=== PATIENT | male | born 1955 | race African-American/Black ===

== ENCOUNTER 2016-12-07 09:52 | Inpatient (IN) ==
[2016-12-07] MEDS ORDERED: PANTOPRAZOLE 40 MG VIAL IV STA (10:25)
[2016-12-07] MEDS ORDERED: ALUM/MAG/SIMETH/LIDO VISC 1:1 30 ML BOTTLE PO STA (10:25)
[2016-12-07] MEDS ORDERED: SODIUM CHLORIDE 0.9% 500 ML IV STA (10:25)
[2016-12-07] MEDS ORDERED: ONDANSETRON 4 MG/2 ML VIAL IV STA (10:25)
--- NOTE | 2016-12-07 10:33 | EKG Report ---
Stationary ECG Study [facility] ER Test Date: 12/07/2016 9:57:39 AM Pat Name: TOM RODRÍGUEZ Department: Room: Gender: M Medical Technologist Prn: RAUL : 1955 Requested by: Tom Pillai Order Number: [id number] Reading MD: DAVIDA PAREDES Intervals [place] Rate: 122 P: 47 IL: 122 QRS: -20 QRSD: 88 T: 29 QT: 323 QTc: 395 Interpretive Statements SINUS TACHYCARDIA POOR R-WAVE PROGRESSION Electronically Signed On 12-07-16 14:56:45 PROFESSIONAL MODEL by DAVIDA PAREDES [email or web address]
[2016-12-07] MEDS ORDERED: PANTOPRAZOLE 40 MG VIAL IV ONE (10:35)
[2016-12-07] MEDS ORDERED: ONDANSETRON 4 MG/2 ML VIAL ONE (10:35)
[2016-12-07] MEDS ORDERED: ALUM/MAG/SIMETH/LIDO VISC 1:1 30 ML BOTTLE PO ONE (10:36)
--- NOTE | 2016-12-07 10:50 | Emergency Department Note ---
Daya Noble Brittany, am scribing for, and in the presence of, Alexis Cordova MD 10:34. Art Noble Charles R, MD, personally performed the services described in this documentation, ascribed by Annika Stapleton in my presence, and it is both accurate and complete . Arrival - Arrival Chief Complaint: Weakness Stated Complaint: Weakness ED Nursing Triage Note: Brought in by EMS c/o generalized weakness-onset three days ago. Patient recently started chemo for pancreatic CA last week. Family reports decreased PO intake for the past few days. Mode of Arrival: Stretcher Limitations: No Limitations Source: Patient, Family Time Seen by Provider: 12/07/16 10:11 - History of Present Illness HPI Narrative: This is a 61 y/o black male,who presents to the ED by EMS with c/o dyspnea, weakness and decreased PO intake which started 3 days ago. He states he he found out he has pancreatic cancer 1.5 weeks ago. He states all the Sx started after his 1st Chemo Tx, 11/29/2015. He denies any nausea, but notes hematuria and abd pain. Pt has no other complaints/pain in the ED at this time. Pt has a PMHx of pancreatic cancer. Pt denies a surgical Hx. Pt denies a family medical Hx. Pt denies a social Hx. Onset (ago): day(s) (Started 3 days ago) Consistency: constant Severity: moderate Allergies/Adverse Reactions: Allergies Allergy/AdvReac Type Severity Reaction Status Date / Time No Known Allergies Allergy Verified 12/07/16 10:01 Home Medications: Home Medications Medication Instructions Recorded Confirmed Type Furosemide [Furosemide] 20 mg PO DAILY 12/07/16 12/07/16 History Hydromorphone HCl 4 mg PO Q6H PRN 12/07/16 12/07/16 History Pantoprazole Tab [Protonix Tab] 20 mg PO DAILY 12/07/16 12/07/16 History Review of System - Review of System 12 point system: reviewed and no additional remarkable complaints except as stated - Review of System Constitutional: Present: weakness Cardiovascular: Present: other (Dyspnea) Gastrointestinal: Present: abdominal pain. Absent: nausea Genitourinary male: Present: hematuria Additional ROS comments: Decreased PO Intake Medical,Surgical,& Family Hx - Medical History Gastrointestinal: History of: Gastrointestinal Cancer (pancreatic cancer) - Social History Smoking Status: Never smoker Frequency of Alcohol Use: None Type of Drug Use: None Exam Vital Signs: Vital Signs Temperature 98.1 F 12/07/16 10:12 Pulse Rate 115 H 12/07/16 11:30 Respiratory Rate 20 12/07/16 11:30 Blood Pressure 95/65 12/07/16 11:30 O2 Sat by Pulse Oximetry 99 12/07/16 11:30 - General General appearance: alert, in no apparent distress, other (Jaundice, Dry cracked lips) - Head Head exam: Present: atraumatic, normocephalic, normal inspection - Eye Eye exam: Present: other (3rd space edema to the eyes) - ENT ENT exam: Present: normal exam, normal oropharynx, mucous membranes moist - Neck Neck exam: Present: normal inspection, full ROM, trachea midline. Absent: tenderness, thyromegaly - Chest Chest inspection: Present: normal inspection, symmetric chest wall rise. Absent : tenderness, rash, abscess - Respiratory Respiratory exam: Present: normal lung sounds bilaterally. Absent: accessory muscle use, prolonged expiratory phase, rales, respiratory distress, rhonchi, stridor, wheezes - Cardiovascular Cardiovascular exam: Present: tachycardia, normal heart sounds - Abdominal Exam Abdominal exam: Present: soft, tenderness (Upper Quadrant ), diminished bowel sounds, ascites, hernia (Umbilical Hernia). Absent: distention, guarding, rebound, rigidity - Extremities Exam Extremities exam: Present: pedal edema (+3) - Back Exam Back exam: Present: normal inspection, full ROM. Absent: tenderness, muscle spasm, rashes - Neurological Exam Neurological exam: Present: alert, oriented X3, CN II-XII intact - Psychiatric Psychiatric exam: Present: normal affect, normal mood. Absent: agitated, anxious - Skin Skin exam: Present: warm, dry, intact, normal color. Absent: diaphoresis Course - Consultations Consultation #1: Spoke to Dr Quiroga, advised to place in the ICU we will give Neupogen, transfuse platelets, transfuse 2 units packed red blood cells Time: 12:37 Results - Labs CBC & BMP: 12/07/16 11:40 12/07/16 10:39 Lab Results: I have reviewed the patients labs Labs: Laboratory Tests 12/07/16 11:07 Urine Bilirubin Small H Urine Urobilinogen 2.0 H Laboratory Tests 12/07/16 12/07/16 12/07/16 10:39 11:02 11:07 WBC RBC Hgb Hct MCV RDW Plt Count Neut % (Auto) [place] % (Auto) Neut # (Auto) Lymph # (Auto) Segmented Neutrophils Nucleated RBCs Sodium 160 H* Chloride 125 H Anion Gap 15.6 H BUN 74 H Creatinine 1.80 H BUN/Creatinine Ratio 41.00 H Glucose 121 H Calculated Osmolality 338.6 H Calcium 7.6 L Total Bilirubin 6.30 H AST 86 H Alkaline Phosphatase 283 H Ammonia < 10 L Total Protein 4.3 L Albumin 1.4 L Albumin/Globulin Ratio 0.4 L Amylase 12 L Lipase 62.0 L Urine Bilirubin Small H Urine Urobilinogen 2.0 H 12/07/16 11:40 WBC 1.2 L RBC 2.59 L Hgb 7.0 L Hct 20.1 L MCV 77.6 L RDW 18.8 H Plt Count 15 L* Neut % (Auto) 33.4 L [place] % (Auto) 14.5 H Neut # (Auto) 0.4 L Lymph # (Auto) 0.6 L Segmented Neutrophils 37 L Nucleated RBCs 12 H Sodium Chloride Anion Gap BUN Creatinine BUN/Creatinine Ratio Glucose Calculated Osmolality Calcium Total Bilirubin AST Alkaline Phosphatase Ammonia Total Protein Albumin Albumin/Globulin Ratio Amylase Lipase Urine Bilirubin Urine Urobilinogen - Diagnostic Findings Procedure: Abdominal x-ray: report reviewed by me (Nothing acute), Chest x-ray: report reviewed by me (The lungs are poorly expanded, and there is mild bibasilar atelectasis. ) Critical Care Time Critical Care Time: Yes Total Critical Care Time: 60 Disposition Clinical Impression: Pancreatic cancer, Failure to thrive, Hypoalbuminemia due to protein-calorie malnutrition, Hypocalcemia, Pancytopenia, Thrombocytopenia, Hypernatremia, Dehydration, Hypotension Case discussed with: patient, patient's family Disposition: Still a Patient Condition: Critical Time of Disposition: 12:39
[2016-12-07 11:21] LABS: Amorphous Crystals,Urine Occasional /HPF (Few); Apearance,Urine Slightly Hazy (Clear); Bacteria,Urine Occasional /HPF (Few); Bilirubin,Urine Small mg/dL (Negative); Blood, Urine Small mg/dL (Negative); Glucose,Urine (UA) Negative (Negative); Hyaline Casts,Urine 1 /LPF (0-3); Ketones,Urine Negative (Negative); Mucus,Urine Occasional /LPF (Occasional); Nitrite,Urine Negative (Negative); Protein,Urine Negative; RBC,Urine 1 /HPF (0-4); Urine Color Amber (Yellow); Urine Specific Gravity 1.013 (1.001-1.035); WBC,Urine 4 /HPF (0-6)
[2016-12-07 11:22] LABS: INR 2.8; PT Patient Result 32.1 SECS
--- NOTE | 2016-12-07 11:48 | XRay Report ---
Referring Physician: Alexis Cordova Exam: XR chest 1V Date: December 07, 2016 at 11:22 AM Reason: Generalized abdominal pain Comparison: Chest PA lateral August 18, 2014 Findings: The cardiac silhouette is upper normal in size, and there is likely eventration of the left hemidiaphragm. The lungs are poorly expanded, and there is mild bibasilar atelectasis. No pneumothorax is identified. No acute osseous process is seen. Impression: The lungs are poorly expanded, and there is mild bibasilar atelectasis. PROCEDURE INTERPRETED AT [facility] DEPARTMENT OF RADIOLOGY Final Report Signed by: Dr. Doretha Bob
--- NOTE | 2016-12-07 11:49 | XRay Report ---
Referring Physician: Alexis Cordova Exam: XR abdomen complete with decubitus view Date: December 07, 2016 at 11:22 AM Reason: Generalized abdominal pain Comparison: None Findings: There is no evidence of bowel obstruction or free air. No definite renal calculi are identified, but the renal shadows are largely obscured. Pelvic phleboliths are noted. There are also surgical clips at the pelvis. The patient is status post right total hip replacement, but no acute osseous process is seen. Impression: No acute abdominal process is identified. PROCEDURE INTERPRETED AT [facility] DEPARTMENT OF RADIOLOGY Final Report Signed by: Dr. Doretha Bob
[2016-12-07 11:55] LABS: Alanine Aminotransferase 36 U/L (16-61); Albumin 1.4 G/DL (3.4-5.0); Alkaline Phosphatase 283 U/L (45-117); Amylase 12 U/L (25-115); Aspartate Amino Transferase 86 U/L (0-37); Blood Urea Nitrogen 74 MG/DL (7-18); Calcium 7.6 MG/DL (8.5-10.1); Glucose 121 MG/DL (74-106); Magnesium 2.3 MG/DL (1.8-2.4); Osmolality,Calculated 338.6 MOS/KG (273-304); Potassium 4.6 MMOL/L (3.5-5.1); Total Protein 4.3 G/DL (6.4-8.3); Troponin I Only < 0.015 NG/ML (0.00-0.045)
[2016-12-07 12:04] LABS: Sodium 160 MMOL/L (136-145)
[2016-12-07] MEDS ORDERED: FILGRASTIM 480 MCG/0.8 ML SYRINGE SUBCUT ONE (12:41)
[2016-12-07] MEDS ORDERED: LEVOFLOXACIN INJ 500 MG in PREMIX 1 EACH IV STA (12:42)
[2016-12-07] MEDS ORDERED: LEVOFLOXACIN INJ 0 ML IV ONE (12:58)
[2016-12-07] MEDS ORDERED: LEVOFLOXACIN INJ 100 ML IV ONE (13:01)
[2016-12-07] MEDS ORDERED: SODIUM CHLORIDE 0.45% 1,000 ML IV ONE (13:15)
[2016-12-07] MEDS ORDERED: FILGRASTIM-SNDZ 300 MCG/0.5 ML SYRINGE SUBCUT ONE ×2 (13:30→20:02)
[2016-12-07] MEDS ORDERED: LACTULOSE 20 GM/30 ML UDCUP PO PRN (14:18)
[2016-12-07] MEDS ORDERED: SODIUM CHLORIDE 0.9% 250 ML IV PRN (14:18)
[2016-12-07] MEDS ORDERED: MYLANTA/LIDO VISC 2:1 300 ML BOTTLE SWISH/SWAL PRN (14:18)
[2016-12-07] MEDS ORDERED: ALUMINUM/MAGNES/SIMETH MAX STR 30 ML UDCUP PO PRN (14:18)
[2016-12-07] MEDS ORDERED: PROMETHAZINE INJ 25 MG in SODIUM CHLORIDE 0.9% 50 ML IV PRN (14:18)
[2016-12-07] MEDS ORDERED: LOPERAMIDE 2 MG CAPSULE PO PRN ×2 (14:18)
[2016-12-07] MEDS ORDERED: BENZTROPINE 2 MG/2 ML AMP IV PRN (14:18)
[2016-12-07] MEDS ORDERED: diphenhydrAMINE CAP 25 MG CAPSULE PO PRN (14:18)
[2016-12-07] MEDS ORDERED: ALPRAZolam 0.25 MG TABLET PO PRN (14:18)
[2016-12-07] MEDS ORDERED: TEMAZEPAM 7.5 MG CAPSULE PO PRN (14:18)
[2016-12-07] MEDS ORDERED: ACETAMINOPHEN 325 MG TABLET PO PRN (14:18)
[2016-12-07] MEDS ORDERED: ONDANSETRON 4 MG/2 ML VIAL IV PRN (14:18)
[2016-12-07] MEDS ORDERED: MAGNESIUM HYDROXIDE SUSP 30 ML UDCUP PO PRN (14:18)
[2016-12-07] MEDS ORDERED: MYLANTA/LIDO VISC 2:1 300 ML BOTTLE SWISH/SPIT PRN (14:18)
[2016-12-07] MEDS ORDERED: traMADol 50 MG TABLET PO PRN (14:18)
[2016-12-07] MEDS ORDERED: guaiFENesin 200 MG/10 ML UDCUP PO PRN (14:18)
[2016-12-07 15:05] LABS: Apearance,Urine Slightly Hazy (Clear); Bacteria,Urine Occasional /HPF (Few); Bilirubin,Urine Negative (Negative); Blood, Urine Small mg/dL (Negative); Glucose,Urine (UA) Negative (Negative); Ketones,Urine Negative (Negative); Mucus,Urine Occasional /LPF (Occasional); Nitrite,Urine Negative (Negative); Protein,Urine Negative; RBC,Urine 1 /HPF (0-4); Squamous Epithelial Cell,Urine Occasional /HPF (0-10); Urine Color Amber (Yellow); Urine Specific Gravity 1.013 (1.001-1.035); WBC,Urine 4 /HPF (0-6)
[2016-12-07 15:06] LABS: Hematocrit 18.1 VOL% (42.0-52.0); Immature Granulocytes % 2.1 %; Immature Granulocytes Absolute 0.02 #; Lymphocytes # 0.6 10*3/uL (1.4-4.0); Lymphocytes % 61.5 % (21.2-54.2); Mean Corpuscular HGB Conc 34.8 GM/DL (32-36); Mean Corpuscular Hemoglobin 27 PG (27-34); Monocytes # 0.1 10*3/uL (0.11-0.8); Monocytes % 13.5 % (1.7-12.7); NRBC # 0.11 10*3/uL; Neutrophils # 0.2 10*3/uL (1.4-7.4); Neutrophils % 22.9 % (38.7-73.9); Red Blood Count 2.35 MC/CUMM (3.8-5.5); Red Cell Distribution Width 18.9 % (9.3-17.3)
[2016-12-07 15:13] LABS: Hemoglobin 6.3 GM/DL (14.0-18.0); Platelet Count 13 T/CUMM (130-400)
--- NOTE | 2016-12-07 15:16 | EKG Report ---
Stationary ECG Study [facility] Test Date: 12/07/2016 3:15:26 PM Pat Name: ALEXIS RODRÍGUEZ Department: Room: 106 Gender: M Electronic Development Technician: PIOTR : 1955 Requested by: Alexis Pillai Order Number: [id number] Reading MD: JOSÉ LUIS DEE Intervals [place] Rate: 107 P: 69 DC: 132 QRS: -18 QRSD: 90 T: 53 QT: 328 QTc: 391 Interpretive Statements SINUS TACHYCARDIA WITH OCCASIONAL SUPRAVENTRICULAR PREMATURE COMPLEXES NONSPECIFIC T-WAVE ABNORMALITY Electronically Signed On 12-07-16 16:13:19 ANALYSIS INTERN by JOSÉ LUIS DEE [email or web address]
[2016-12-07 15:50] LABS: Lymphocytes 63 % (20-55); Nucleated Red Blood Cells 2 (0-5); Segmented Neutrophils 26 % (50-85); Total Cells Counted 100
[2016-12-07 15:51] LABS: Hypochromasia 3+; Platelet Estimate Decreased; Target Cells 1+
[2016-12-07] MEDS: SODIUM CHLORIDE 0.45% 1,000 ML IV SCH ×2 (16:22→20:45)
[2016-12-07] MEDS ORDERED: FLUCONAZOLE INJ 100 MG in IV BAG 1 EACH IV ONE ×2 (16:55→20:00)
--- NOTE | 2016-12-07 17:00 | Oncology History&Physical ---
Assessment and Plan - Time spent with patient Time spent with patient: Greater than 30 minutes (1) Pancreatic cancer Status: Acute Assessment and plan: We will transfuse 2 units of blood and 1 unit of platelets today. We will aggressively rehydrate him overnight. We will cover him with Levaquin for impaired antimicrobial coverage. I will place him on Diflucan at a low-dose for his oral candidiasis. His prognosis is very poor and I would not be surprised he continues to worsen. We're only 5 days out from receiving his first dose of chemotherapy. I'm unsure how much of this is chemotherapy- induced versus tumor burden to his liver. He is considering his CODE STATUS and I strongly encourage him to consider being DNR. He just recently lost his 2 months ago to lung cancer. This is a very sad situation. Current Visit: Yes (2) Liver metastases Status: Acute Current Visit: Yes (3) Liver failure Status: Acute Current Visit: Yes (4) Dehydration Status: Acute Current Visit: Yes (5) Hypotension Status: Acute Current Visit: Yes (6) Pancytopenia Status: Acute Current Visit: Yes History of Present Illness History of present illness: Mr. Monk is a 61 year old male with newly diagnosed metastatic pancreatic cancer who began chemotherapy last week. He has underlying liver failure from his diffuse liver involvement. I explained to him on our first visit in clinic last week. He is a better candidate for hospice measures and I do not think he would tolerate chemotherapy at all but he was adamant that he wanted to at least try it. We began Gemzar plus Abraxane approximate 5 days ago and he has very rapidly worsened after receiving chemotherapy. His chemotherapy was already dose reduced by approximately 50% of that time. He presented to the ER today complaining of fatigue and mouth soreness. He was found to be severely pancytopenic with dehydration and worsening liver failure. We have aggressively hydrate him for his hypotension. He is given 2 units of blood and 1 unit of platelets. We have begun on Neupogen. His on Levaquin for empiric antimicrobial coverage. He has significant oral candidiasis. His abdomen is nontender but soft with a positive fluid wave. He has significant lower semi- edema to the mid thigh. His bilirubin level is greater than 6 and was only at 3 last week. His abdomen level is 1.4. I had a lengthy discussion within just in about his extreme sickness and told him to strongly consider his CODE STATUS. He would like to think about this. Home Medications Medication Instructions Recorded Confirmed Type Furosemide [Furosemide] 20 mg PO DAILY 12/07/16 12/07/16 History Hydromorphone HCl 4 mg PO Q6H PRN 12/07/16 12/07/16 History Pantoprazole Tab [Protonix Tab] 20 mg PO DAILY 12/07/16 12/07/16 History Allergies Allergy/AdvReac Type Severity Reaction Status Date / Time No Known Allergies Allergy Verified 12/07/16 10:01 Medical,Surgical,& Family Hx - Medical History Cardio: History of: Hypertension Endocrine: History of: Diabetes Mellitus (NIDDM) Gastrointestinal: History of: Gastrointestinal Cancer (pancreatic cancer) - Social History Smoking Status: Never smoker Frequency of Alcohol Use: None Type of Drug Use: None 12 point system: reviewed and no additional remarkable complaints except as stated - Constitutional Constitutional: Present: fatigue, weakness. Absent: chills, fever(s) - EENT Nose, mouth and throat: Present: odynophagia, sore throat. Absent: epistaxis - Cardiovascular Cardiovascular ROS IM: Present: edema. Absent: chest pain - Gastrointestinal Gastrointestinal: Present: nausea, jaundice. Absent: abdominal pain, vomiting - Genitourinary Genitourinary ROS male: Absent: dysuria, hematuria - Psychiatric Psychiatric General: Present: depression Exam - Constitutional Vitals: Period Temp Pulse Resp BP Sys/Benson Pulse Ox Last 24 Hr 98.7 F-99.0 F 103-116 18-34 82-99/49-72 93-97 General appearance: normal weight, no acute distress - Head Head Exam: Present: normocephalic, atraumatic - Eye Eye Exam: Present: EOMI, scleral icterus Pupils: Present: PERRL - ENT ENT exam: Present: other (significant oral candidiasis on diffuse buccal surfaces) - Neck Neck exam: Present: thyromegaly. Absent: lymphadenopathy - Respiratory Respiratory exam: Present: CTAB. Absent: wheezes - Cardiovascular Cardiovascular exam: Present: RRR, tachycardia. Absent: JVD - GI/Abdominal GI/Abdominal exam: Present: ascites, soft. Absent: distended, firm, mass, tenderness - Neurological Exam Neurological exam: Present: alert, oriented X3 - Psychiatric Psychiatric exam: Present: normal affect, normal mood - Skin Skin exam: Present: warm, dry Results - Labs CBC & BMP: 12/07/16 15:00 12/07/16 10:39 Lab Results: I have reviewed the past 24 hour labs Quality Measures - VTE Contraindication to Pharmacological VTE Prophylaxis: Thrombocytopenia - Stroke Symptom Onset Unknown: No
[2016-12-08] MEDS: SODIUM CHLORIDE 0.45% 1,000 ML IV SCH ×2 (03:31→16:23)
[2016-12-08 05:44] LABS: Basophils % 2.1 % (0.0-0.8); Hematocrit 25.3 VOL% (42.0-52.0); Immature Granulocytes % 7.1 %; Lymphocytes # 0.8 10*3/uL (1.4-4.0); Lymphocytes % 57.1 % (21.2-54.2); Mean Corpuscular HGB Conc 34.8 GM/DL (32-36); Mean Corpuscular Hemoglobin 27 PG (27-34); Mean Corpuscular Volume 78.8 FL (87-102); Monocytes # 0.4 10*3/uL (0.11-0.8); NRBC # 0.99 10*3/uL; Neutrophils # 0.1 10*3/uL (1.4-7.4); Neutrophils % 8.7 % (38.7-73.9); Platelet Count 54 T/CUMM (130-400); Red Blood Count 3.21 MC/CUMM (3.8-5.5); Red Cell Distribution Width 19.8 % (9.3-17.3); White Blood Count 1.4 T/CUMM (4-12)
[2016-12-08 05:46] LABS: Hemoglobin 8.8 GM/DL (14.0-18.0)
[2016-12-08 05:54] LABS: INR 3.1
[2016-12-08 06:16] LABS: Lymphocytes 55 % (20-55); Nucleated Red Blood Cells 81 (0-5); Segmented Neutrophils 18 % (50-85); Total Cells Counted 100
[2016-12-08 06:17] LABS: Hypochromasia 1+; Ovalocytes Slight; Platelet Estimate Decreased; Target Cells Few
[2016-12-08 06:31] LABS: Albumin 1.4 G/DL (3.4-5.0); Bilirubin,Total 7.5 MG/DL (0.2-1.0); Calcium 7.2 MG/DL (8.5-10.1); Magnesium 2.4 MG/DL (1.8-2.4); Osmolality,Calculated 337.3 MOS/KG (273-304); Potassium 4.3 MMOL/L (3.5-5.1); Total Protein 4.2 G/DL (6.4-8.3)
--- NOTE | 2016-12-08 06:37 | XRay Report ---
Referring Physician: Alexis Cordova Exam: XR chest 1V portable Date: December 08, 2016 at 3:28 AM Reason: Shortness of breath Comparison: Chest one view portable December 07, 2016 Findings: The cardiac silhouette is upper normal in size, and there is likely eventration of the left hemidiaphragm. The lungs are poorly expanded, and there are bibasilar opacities. These opacities are most consistent with atelectasis. No pneumothorax is identified. No acute osseous process is seen. Impression: There has been no significant change. PROCEDURE INTERPRETED AT [facility] DEPARTMENT OF RADIOLOGY Final Report Signed by: Dr. Doretha Bob [facility]ITAL[facility]el[facility]
--- NOTE | 2016-12-08 08:21 | Oncology Progress Note ---
Assessment and Plan (1) Liver metastases Status: Acute Current Visit: Yes (2) Liver failure Status: Acute Current Visit: Yes (3) Dehydration Status: Acute Current Visit: Yes (4) Hypotension Status: Acute Current Visit: Yes (5) Pancytopenia Status: Acute Current Visit: Yes Oncology Subjective PN Interval history: Mr. Monk seem slightly improved today. He received 1 unit of platelets and 2 units of blood yesterday. He is still severely dehydrated but is third spacing most of his IV fluids. I'll decrease the rate to 75 and encourage increased by mouth intake. He is now DNR after a lengthy discussion with he and his family. I'll keep him in the unit for one more day since his care is fairly complex. I do not see a benefit to doing a paracentesis at this time as his abdomen does not seem that distended. His situation still remains fairly guarded but he has improved overnight. I'll continue with Levaquin until we see an improvement in his neutrophil count and negative cultures. He is on Neupogen. His oral candidiasis is improved. His blood pressure has improved with IV fluids but he still remains with sinus tachycardia. On exam he has 2+ edema of his lower extremities to his knee. His abdomen is distended but soft. His lungs are clear to auscultation bilaterally with no wheezes. He is alert known to person place and time. Exam - Constitutional Vitals: Period Temp Pulse Resp BP Sys/Benson Pulse Ox Last 24 Hr 98.3 F-99.0 F 103-118 18-40 79-115/46-73 90-98 General appearance: mild distress - Head Head Exam: Present: normocephalic, atraumatic - Eye Eye Exam: Present: EOMI Pupils: Present: PERRL - ENT ENT exam: Present: normal exam, normal oropharynx - Neck Neck exam: Absent: lymphadenopathy, thyromegaly - Respiratory Respiratory exam: Present: CTAB. Absent: wheezes - GI/Abdominal GI/Abdominal exam: Present: ascites, soft. Absent: distended, firm, mass - Extremities Exam Extremities exam: Present: edema Results - Labs CBC & BMP: 12/08/16 04:21 12/08/16 04:21 Lab Results: I have reviewed the past 24 hour labs Quality Measures - VTE Contraindication to Pharmacological VTE Prophylaxis: Thrombocytopenia - Stroke Symptom Onset Unknown: No
--- NOTE | 2016-12-08 08:57 | Physician Query Form ---
CLICK EDIT DOCUMENT TO SELECT QUERY ANSWER --> OK --> SIGN Thao Multani RN, CCDS Certified Clinical Clicker Operator W) [phone] (f) [phone] [email or web address]: Make your selection(s) from the choices in EACH section by typing an "x" and enter comments in the comment section. Please use your independent medical judgment in providing your response. This request does not imply that any particular answer is desired or expected. CLINICAL INDICATORS: (Providers should not edit this section) The medical record indicates that the patient was admitted with pancreatic cancer, "Pancytopenia", "received 1 unit of platelets and 2 units of blood yesterday"/ "on Neupogen". Based on the above, could you clarify which of the following conditions you are evaluating, treating, and/or monitoring? ( ) Blood loss anemia ( ) acute ( ) chronic ( ) acute on chronic ( ) Acute blood loss anemia on baseline chronic anemia ( ) Acute blood loss anemia as a complication of a procedure ( ) Iron deficiency anemia not associated with blood loss ( ) Dilutional anemia due to IV fluids ( x) Anemia due to chemotherapy ( x) Anemia due to neoplastic disease ( ) Anemia due to chronic kidney disease ( ) Pernicious anemia ( ) Aplastic anemia ( ) Hemolytic anemia ( ) immune ( ) non-immune - please specify cause: ( ) Anemia due to other condition, please specify: ( ) Clinically unable to determine COMMENTS: Use of terms such as suspected, likely, or probable (associated with a specific diagnosis that is being evaluated, monitored, or treated as if it exists) are acceptable and can be restated in the discharge summary if not ruled out. MTDD
[2016-12-08] MEDS ORDERED: FUROSEMIDE 20 MG TABLET PO SCH (09:00)
[2016-12-08] MEDS ORDERED: PANTOPRAZOLE 40 MG VIAL IV SCH (09:00)
[2016-12-08] MEDS: PANTOPRAZOLE 20 MG TABLET PO SCH (09:15)
[2016-12-08] MEDS: LEVOFLOXACIN INJ 500 MG in PREMIX 1 EACH IV SCH (09:15)
[2016-12-08] MEDS: HYDROmorphone 2 MG TABLET PO PRN (09:15)
[2016-12-08] MEDS: FILGRASTIM-SNDZ 300 MCG/0.5 ML SYRINGE SUBCUT SCH (09:15)
[2016-12-09] MEDS: SODIUM CHLORIDE 0.45% 1,000 ML IV SCH ×2 (05:02→16:32)
[2016-12-09 05:25] LABS: Basophils % 0.6 % (0.0-0.8); Eosinophils % 0.2 % (0.00-10.9); Hematocrit 27.5 VOL% (42.0-52.0); Hemoglobin 9.2 GM/DL (14.0-18.0); Immature Granulocytes % 4.4 %; Immature Granulocytes Absolute 0.28 #; Lymphocytes # 2.2 10*3/uL (1.4-4.0); Lymphocytes % 34.3 % (21.2-54.2); Mean Corpuscular HGB Conc 33.5 GM/DL (32-36); Mean Corpuscular Hemoglobin 27 PG (27-34); Mean Corpuscular Volume 81.8 FL (87-102); Monocytes # 1.2 10*3/uL (0.11-0.8); Monocytes % 18.4 % (1.7-12.7); NRBC # 6.53 10*3/uL; Neutrophils # 2.7 10*3/uL (1.4-7.4); Neutrophils % 42.1 % (38.7-73.9); Platelet Count 70 T/CUMM (130-400); Red Blood Count 3.36 MC/CUMM (3.8-5.5); Red Cell Distribution Width 21.1 % (9.3-17.3); White Blood Count 6.3 T/CUMM (4-12)
[2016-12-09 06:01] LABS: Albumin 1.4 G/DL (3.4-5.0); Calcium 7.1 MG/DL (8.5-10.1); Magnesium 2.5 MG/DL (1.8-2.4); Osmolality,Calculated 340.3 MOS/KG (273-304); Potassium 4.4 MMOL/L (3.5-5.1)
[2016-12-09 06:31] LABS: Band Neutrophils 1 % (0-10); Hypochromasia 1+; Lymphocytes 28 % (20-55); Metamyelocytes 5 %; Myelocytes 2 %; Nucleated Red Blood Cells 226 (0-5); Promyelocytes 1 %; Segmented Neutrophils 46 % (50-85); Target Cells 1+; Total Cells Counted 100
[2016-12-09 06:32] LABS: Microcytosis 1+; Polychromasia Slight
[2016-12-09 06:33] LABS: Platelet Estimate Decreased
[2016-12-09] MEDS: LEVOFLOXACIN INJ 500 MG in PREMIX 1 EACH IV SCH (09:33)
[2016-12-09] MEDS: FILGRASTIM-SNDZ 300 MCG/0.5 ML SYRINGE SUBCUT SCH (09:34)
[2016-12-09] MEDS: PANTOPRAZOLE 20 MG TABLET PO SCH (09:34)
--- NOTE | 2016-12-09 09:34 | Oncology Progress Note ---
Assessment and Plan (1) Liver metastases Status: Acute Current Visit: Yes (2) Liver failure Status: Acute Current Visit: Yes (3) Dehydration Status: Acute Current Visit: Yes (4) Hypotension Status: Acute Current Visit: Yes (5) Pancytopenia Status: Acute Current Visit: Yes Oncology Subjective PN Interval history: Mr. Monk is a 61-year-old black male with newly diagnosed metastatic pancreatic cancer who began chemotherapy last week. He was in very poor shape to start chemotherapy but he was adamant that he wanted to at least attempt treatment. He presented to the hospital just 5 days after receiving chemotherapy complaining of severe weakness. He was found to be pancytopenic and severely dehydrated. He was transfused 2 units of blood and 1 unit of platelets. He was started on Neupogen as well. We are tending to aggressively rehydrate him but given his poor nutritional status and low albumin, he has significant third spacing. He is DNR after lengthy discussion with he and his family. I'm hoping that he will not want any further chemotherapy once she is discharged but we will address this at that time. I will transfer him to the floor today and continue with IV fluids. His blood counts seem to be recovering so I will go ahead and place him on prophylactic Lovenox since he is fairly immobile. He complains of severe dry mouth which is most likely mucositis related to his chemotherapy and neutropenia. I will stop his Neupogen after his dose this morning. I will also discontinue his Levaquin since his cultures are been no growth. On exam he still has significant lower extremity edema. There is also mild ascites of his abdomen. On oral exam there is no significant candidiasis but I do see mild mucositis. Exam - Constitutional Vitals: Period Temp Pulse Resp BP Sys/Benson Pulse Ox Last 24 Hr 98.5 F-99.9 F 110-120 20-40 82-113/60-74 90-96 Results - Labs CBC & BMP: 12/09/16 04:59 12/09/16 04:59 Quality Measures - VTE Contraindication to Pharmacological VTE Prophylaxis: Thrombocytopenia - Stroke Symptom Onset Unknown: No
[2016-12-09] MEDS: HYDROmorphone 2 MG TABLET PO PRN (11:07)
[2016-12-09] MEDS ORDERED: ENOXAPARIN 30 MG/0.3 ML SYRINGE SUBCUT SCH (15:00)
[2016-12-10] MEDS: SODIUM CHLORIDE 0.45% 1,000 ML IV SCH ×2 (01:59→08:07)
[2016-12-10] MEDS: PANTOPRAZOLE 20 MG TABLET PO SCH (08:08)
[2016-12-10] MEDS ORDERED: MORPHINE 2 MG/1 ML SYRINGE IV PRN (08:14)
[2016-12-10 08:16] LABS: Basophils # 0.1 10*3/uL (0.0-0.2); Basophils % 0.3 % (0.0-0.8); Eosinophils % 0.1 % (0.00-10.9); Hematocrit 28.2 VOL% (42.0-52.0); Hemoglobin 9.3 GM/DL (14.0-18.0); Immature Granulocytes % 10.7 %; Immature Granulocytes Absolute 2.75 #; Lymphocytes # 0.1 10*3/uL (1.4-4.0); Lymphocytes % 0.2 % (21.2-54.2); Mean Corpuscular Hemoglobin 27 PG (27-34); Mean Corpuscular Volume 82.9 FL (87-102); Monocytes # 4.1 10*3/uL (0.11-0.8); Monocytes % 15.8 % (1.7-12.7); NRBC # 13.76 10*3/uL; Neutrophils # 18.8 10*3/uL (1.4-7.4); Neutrophils % 72.9 % (38.7-73.9); Platelet Count 107 T/CUMM (130-400); Red Cell Distribution Width 22.5 % (9.3-17.3); White Blood Count 25.8 T/CUMM (4-12)
[2016-12-10 08:50] LABS: Band Neutrophils 1 % (0-10); Elliptocytes Few; Hypochromasia 1+; Lymphocytes 8 % (20-55); Nucleated Red Blood Cells 48 (0-5); Platelet Estimate Decreased; Polychromasia Slight; Segmented Neutrophils 79 % (50-85); Total Cells Counted 100
[2016-12-10 08:51] LABS: Albumin 1.4 G/DL (3.4-5.0); Bilirubin,Total 10.5 MG/DL (0.2-1.0); Calcium 6.9 MG/DL (8.5-10.1); Magnesium 2.7 MG/DL (1.8-2.4); Microcytosis 1+; Osmolality,Calculated 349.3 MOS/KG (273-304); Potassium 4.5 MMOL/L (3.5-5.1)
--- NOTE | 2016-12-10 10:39 | Oncology Progress Note ---
Assessment and Plan (1) Pancreatic cancer Status: Acute Assessment and plan: 61 year old male with PMHx of newly dx pancreatic cancer s/p cycle 1 with dose reduced gemcitabine and abraxane readmitted for pancytopenia and dehydration. - WBC responded appropriately to neupogen - monitoring counts - DNR - cultures negative - discussed prognosis and worsening labs with sister and niece at bedside. patient and family confirmed that they understand poor prognosis and do not wish for aggressive interventions. will continue with supportive care in hopes of reversing acute issues. Current Visit: Yes (2) Hypernatremia Status: Acute Assessment and plan: likely dehydration from poor PO intake - will change fluids to D5W and repeat BMP in afternoon Current Visit: Yes (3) Liver failure Status: Acute Assessment and plan: rising bilirubin - likely secondary to pancreatic metastasis - will hold off on RUQ sonogram as family does not wish for aggressive interventions Current Visit: Yes (4) Acute kidney failure Status: Acute Assessment and plan: likely multi-factorial from pre-renal/dehydration and possibly from ATN from chemotherapy - will place a burkett - will contine with IVF - will hold off on renal consult for now as family does not wish for aggressive measures and patient with an underlying aggressive malignancy with limited treatment options secondary to poor performance status Current Visit: Yes Oncology Subjective PN Interval history: 61 year old male with PMHx of newly dx pancreatic cancer s/p cycle 1 with dose reduced gemcitabine and abraxane readmitted for pancytopenia and dehydration. Today patient with shallow breathing and shortness of breath. Also refers poor PO intake secondary to abdominal pain. No nausea, vomiting. No fevers. Refers pain in mouth on swallowing. Exam - Constitutional Vitals: Period Temp Pulse Resp BP Sys/Benson Pulse Ox Last 24 Hr 96.3 F-99.3 F 102-114 18-48 86-95/53-68 91-97 General appearance: mild distress - Eye Eye Exam: Present: EOMI Pupils: Present: PERRL - Respiratory Respiratory exam: Present: decreased breath sounds, other (shallow rapid breathing) - Cardiovascular Cardiovascular exam: Present: tachycardia - GI/Abdominal GI/Abdominal exam: Present: distended, firm, tenderness (diffuse). Absent: guarding - Extremities Exam Extremities exam: Present: edema - Neurological Exam Neurological exam: Present: alert - Skin Skin exam: Present: warm Results - Labs CBC & BMP: 12/10/16 07:56 02/04/17 07:56 Quality Measures - VTE Contraindication to Pharmacological VTE Prophylaxis: Thrombocytopenia - Stroke Symptom Onset Unknown: No
[2016-12-10] MEDS: DEXTROSE 5% 1,000 ML IV SCH (18:36)
[2016-12-10 18:49] LABS: Calcium 6.8 MG/DL (8.5-10.1); Osmolality,Calculated 353.6 MOS/KG (273-304); Potassium 4.2 MMOL/L (3.5-5.1)
[2016-12-11 05:28] LABS: Basophils # 0.1 10*3/uL (0.0-0.2); Basophils % 0.2 % (0.0-0.8); Eosinophils # 0.3 10*3/uL (0.0-0.87); Eosinophils % 0.9 % (0.00-10.9); Hematocrit 31.2 VOL% (42.0-52.0); Hemoglobin 10.3 GM/DL (14.0-18.0); Immature Granulocytes % 14.2 %; Immature Granulocytes Absolute 4.66 #; Lymphocytes # 0.6 10*3/uL (1.4-4.0); Lymphocytes % 1.9 % (21.2-54.2); Mean Corpuscular Hemoglobin 28 PG (27-34); Mean Corpuscular Volume 84.3 FL (87-102); Monocytes # 3.7 10*3/uL (0.11-0.8); Monocytes % 11.1 % (1.7-12.7); NRBC # 12.56 10*3/uL; Neutrophils # 23.5 10*3/uL (1.4-7.4); Neutrophils % 71.7 % (38.7-73.9); Platelet Count 120 T/CUMM (130-400); Red Cell Distribution Width 23.5 % (9.3-17.3); White Blood Count 32.8 T/CUMM (4-12)
[2016-12-11] MEDS: DEXTROSE 5% 1,000 ML IV SCH ×3 (05:52→17:32)
[2016-12-11 05:58] LABS: Albumin 1.5 G/DL (3.4-5.0); Bilirubin,Total 13.4 MG/DL (0.2-1.0); Calcium 7.1 MG/DL (8.5-10.1); Osmolality,Calculated 350.7 MOS/KG (273-304); Total Protein 4.4 G/DL (6.4-8.3)
[2016-12-11 06:15] LABS: Band Neutrophils 2 % (0-10); Hypochromasia 1+; Lymphocytes 9 % (20-55); Myelocytes 1 %; Nucleated Red Blood Cells 35 (0-5); Platelet Estimate Normal; Segmented Neutrophils 80 % (50-85); Total Cells Counted 100
[2016-12-11 06:16] LABS: Elliptocytes Few; Polychromasia Slight; Target Cells Few
[2016-12-11] MEDS: PANTOPRAZOLE 20 MG TABLET PO SCH (09:12)
--- NOTE | 2016-12-11 10:31 | Oncology Progress Note ---
Assessment and Plan (1) Pancreatic cancer Status: Acute Assessment and plan: 61 year old male with PMHx of newly dx pancreatic cancer s/p cycle 1 with dose reduced gemcitabine and abraxane readmitted for pancytopenia and dehydration. - WBC responded appropriately to neupogen - monitoring counts - DNR - cultures negative - discussed prognosis and worsening labs with sister and niece at bedside on 12/10. - patient and family confirmed that they understand poor prognosis and do not wish for aggressive interventions. patient continues to states his wishes today as well. - will continue with supportive care in hopes of reversing acute issues. Current Visit: Yes (2) Hypernatremia Status: Acute Assessment and plan: likely dehydration from poor PO intake - on D5W at 100 cc/hr - slow decrease in Na - encouraged PO intake free water Current Visit: Yes (3) Liver failure Status: Acute Assessment and plan: slow rising bilirubin - likely secondary to pancreatic metastasis - will hold off on RUQ sonogram as family does not wish for aggressive interventions Current Visit: Yes (4) Acute kidney failure Status: Acute Assessment and plan: likely multi-factorial from pre-renal/dehydration and possibly from ATN from chemotherapy - burkett in place - will continue with IVF - will hold off on renal consult for now as family does not wish for aggressive measures and patient with an underlying aggressive malignancy with limited treatment options secondary to poor performance status - patient continues to state would not wish for hemodialysis today - will add PO bicarb today Current Visit: Yes Oncology Subjective PN Interval history: Patient lying comfortable in bed. Easily arousable to sound. States pain better controlled today. Continues to have good mentation. States that he continues to not want aggressive invasive measures and is aware of prognosis. Continues to refer pain in mouth. No fevers. Having diarrhea yesterday with C diff negative. Exam - Constitutional Vitals: Period Temp Pulse Resp BP Sys/Benson Pulse Ox Last 24 Hr 97 F-97.4 F 104-108 18-22 85-97/50-63 95-98 General appearance: mild distress - Eye Eye Exam: Present: EOMI, scleral icterus Pupils: Present: PERRL - Respiratory Respiratory exam: Present: decreased breath sounds, other (tachypnea with shallow breathing) - Cardiovascular Cardiovascular exam: Present: tachycardia - GI/Abdominal GI/Abdominal exam: Present: ascites, distended, mass, tenderness. Absent: guarding - Extremities Exam Extremities exam: Present: edema - Neurological Exam Neurological exam: Present: alert, normal gait - Psychiatric Psychiatric exam: Present: normal affect - Skin Skin exam: Present: warm Results - Labs CBC & BMP: 12/11/16 05:01 12/11/16 05:01 Quality Measures - VTE Contraindication to Pharmacological VTE Prophylaxis: Thrombocytopenia - Stroke Symptom Onset Unknown: No
[2016-12-11] MEDS: SODIUM BICARBONATE 650 MG TABLET PO SCH (23:32)
[2016-12-12] MEDS: DEXTROSE 5% 1,000 ML IV SCH ×2 (00:11→15:46)
[2016-12-12 05:34] LABS: Basophils # 0.1 10*3/uL (0.0-0.2); Basophils % 0.2 % (0.0-0.8); Hematocrit 29.3 VOL% (42.0-52.0); Hemoglobin 9.9 GM/DL (14.0-18.0); Immature Granulocytes Absolute 3.38 #; Lymphocytes # 1.3 10*3/uL (1.4-4.0); Lymphocytes % 3.9 % (21.2-54.2); Mean Corpuscular HGB Conc 33.8 GM/DL (32-36); Mean Corpuscular Hemoglobin 28 PG (27-34); Mean Corpuscular Volume 81.4 FL (87-102); Monocytes # 2.1 10*3/uL (0.11-0.8); Monocytes % 6.2 % (1.7-12.7); NRBC # 7.91 10*3/uL; Neutrophils # 26.8 10*3/uL (1.4-7.4); Neutrophils % 79.7 % (38.7-73.9); Platelet Count 108 T/CUMM (130-400); Red Cell Distribution Width 23.4 % (9.3-17.3); White Blood Count 33.7 T/CUMM (4-12)
[2016-12-12 06:08] LABS: Band Neutrophils 22 % (0-10); Lymphocytes 9 % (20-55); Macrocytosis 1+; Myelocytes 1 %; Nucleated Red Blood Cells 20 (0-5); Promyelocytes 3 %; Segmented Neutrophils 59 % (50-85); Target Cells Slight; Total Cells Counted 100
[2016-12-12 06:09] LABS: Albumin 1.4 G/DL (3.4-5.0); Bilirubin,Total 14.2 MG/DL (0.2-1.0); Burr Cells 1+; Calcium 6.9 MG/DL (8.5-10.1); Osmolality,Calculated 348.9 MOS/KG (273-304); Platelet Estimate Adequate; Polychromasia Slight; Potassium 3.9 MMOL/L (3.5-5.1); Total Protein 4.1 G/DL (6.4-8.3)
--- NOTE | 2016-12-12 08:02 | Oncology Progress Note ---
Assessment and Plan (1) Liver metastases Status: Acute Current Visit: Yes (2) Liver failure Status: Acute Current Visit: Yes (3) Dehydration Status: Acute Current Visit: Yes (4) Hypotension Status: Acute Current Visit: Yes (5) Pancytopenia Status: Acute Current Visit: Yes Oncology Subjective PN Interval history: Mr. Monk is a 61-year-old black male with newly diagnosed metastatic pancreatic cancer who has rapidly deteriorated just in the last 2-3 weeks. We attempted chemotherapy 2 weeks ago but he was admitted to the hospital just 5 days after receiving chemotherapy with pancytopenia and liver failure. His liver has continued to worsen throughout his hospital stay. We are now basically doing comfort measures only and he is aware that we are not doing any further treatment. I've also discussed this with his sister and niece and they' re both in agreement that providing comfort measures with hospice would be the next step once he is discharged. Mr. Monk lives alone and will not be able to care for himself from this point forward. We will ask case management to begin looking for some type of placement with hospice care. I do not anticipate him surviving more than a week or 2. He is taking in very little by mouth intake. He has not ambulating much. On exam his abdomen is distended but soft. He has positive scleral icterus. He is alert and oriented to person place and time. His mouth shows significant mucositis and no definitive candidiasis. Exam - Constitutional Vitals: Period Temp Pulse Resp BP Sys/Benson Pulse Ox Last 24 Hr 96.9 F-97.5 F 100-107 16-18 90-112/56-58 94-94 Results - Labs CBC & BMP: 12/12/16 04:44 12/12/16 04:44 Quality Measures - VTE Contraindication to Pharmacological VTE Prophylaxis: Thrombocytopenia - Stroke Symptom Onset Unknown: No
[2016-12-12] MEDS: SODIUM BICARBONATE 650 MG TABLET PO SCH ×2 (09:51→20:32)
[2016-12-12] MEDS: PANTOPRAZOLE 20 MG TABLET PO SCH (09:51)
[2016-12-13] MEDS ORDERED: FLUCONAZOLE INJ 100 MG in IV BAG 1 EACH IV ONE (08:07)
--- NOTE | 2016-12-13 08:09 | Oncology Progress Note ---
Assessment and Plan (1) Liver metastases Status: Acute Current Visit: Yes (2) Liver failure Status: Acute Current Visit: Yes (3) Dehydration Status: Acute Current Visit: Yes (4) Hypotension Status: Acute Current Visit: Yes (5) Pancytopenia Status: Acute Current Visit: Yes Oncology Subjective PN Interval history: Mr. Monk has had no acute issues overnight. He is still very weak but does not complaining of severe pain. He still taking in very little by mouth intake. We are discussing long-term placement even though he would like to go home. He lives alone and he is in no condition to take care of himself without full assistance. I will place a low-dose Duragesic patch on him today. He has significant mucositis with some mild candidiasis, I will give him 1 dose of Diflucan today as well. We are providing comfort measures only. I'm not checking lab work as we know that he is informed and liver failure. If he is discharged, he will need hospice arranged. Exam - Constitutional Vitals: Period Temp Pulse Resp BP Sys/Benson Pulse Ox Last 24 Hr 96.1 F-97.3 F 99-101 20-38 81-103/51-57 97-99 Results - Labs CBC & BMP: 12/12/16 04:44 12/12/16 04:44 Quality Measures - VTE Contraindication to Pharmacological VTE Prophylaxis: Thrombocytopenia - Stroke Symptom Onset Unknown: No
[2016-12-13] MEDS ORDERED: fentaNYL 25 MCG/HR PATCH TRANSDERM SCH (09:00)
[2016-12-13] MEDS: PANTOPRAZOLE 20 MG TABLET PO SCH (09:13)
[2016-12-13] MEDS: SODIUM BICARBONATE 650 MG TABLET PO SCH ×2 (09:14→20:34)
[2016-12-13] MEDS: DEXTROSE 5% 1,000 ML IV SCH ×3 (12:31→22:58)
--- NOTE | 2016-12-14 08:15 | Oncology Progress Note ---
Assessment and Plan (1) Liver metastases Status: Acute Current Visit: Yes (2) Liver failure Status: Acute Current Visit: Yes (3) Dehydration Status: Acute Current Visit: Yes (4) Hypotension Status: Acute Current Visit: Yes (5) Pancytopenia Status: Acute Current Visit: Yes Oncology Subjective PN Interval history: Mr. Monk is resting more comfortably now that we added the Duragesic patch. His abdomen is not distended. He still taking in very little by mouth intake and is not ambulating much. We are continue with IV fluids for now. He has no new complaints. I had a discussion with his family today about the reason we are not checking any lab work since our only focus of this point is providing comfort. We could consider discontinuing vital signs as well. I'm unsure what our disposition at this point is as I do not think he has any type of insurance and will be very difficult finding long-term placement with hospice coverage. He may be stuck being cared for here at the hospital for the remainder of his life which should not extend more than a couple weeks. Exam - Constitutional Vitals: Period Temp Pulse Resp BP Sys/Benson Pulse Ox Last 24 Hr 97.5 F-97.6 F 91-101 18-36 76-84/44-47 95 Results - Labs CBC & BMP: 12/12/16 04:44 12/12/16 04:44 Quality Measures - VTE Contraindication to Pharmacological VTE Prophylaxis: Thrombocytopenia - Stroke Symptom Onset Unknown: No
[2016-12-14] MEDS: DEXTROSE 5% 1,000 ML IV SCH (08:43)
[2016-12-14] MEDS: PANTOPRAZOLE 20 MG TABLET PO SCH (10:02)
[2016-12-14] MEDS: SODIUM BICARBONATE 650 MG TABLET PO SCH ×2 (10:02→22:30)
[2016-12-15] MEDS: DEXTROSE 5% 1,000 ML IV SCH ×2 (01:36→01:37)
--- NOTE | 2016-12-15 07:53 | Oncology Progress Note ---
Assessment and Plan (1) Liver metastases Status: Acute Current Visit: Yes (2) Liver failure Status: Acute Current Visit: Yes (3) Dehydration Status: Acute Current Visit: Yes (4) Hypotension Status: Acute Current Visit: Yes (5) Pancytopenia Status: Acute Current Visit: Yes Oncology Subjective PN Interval history: Mr. Monk is essentially the same as yesterday. He seems to be a little more restless so I'll increase his fentanyl patch to 50 g. We will discontinue IV fluids and vital signs checked. He and his family are anxious about him lingering in this condition and would honestly hope that he passes soon because a hate to see him suffer. We will continue with comfort measures. I do not think he will survive but a few more days at best. Exam - Constitutional Vitals: Period Temp Pulse Resp BP Sys/Benson Pulse Ox Last 24 Hr 97.0 F-97.1 F 91-118 18-32 88-190/55-130 90-92 Results - Labs CBC & BMP: 12/12/16 04:44 12/12/16 04:44 Quality Measures - VTE Contraindication to Pharmacological VTE Prophylaxis: Thrombocytopenia - Stroke Symptom Onset Unknown: No
[2016-12-15] MEDS ORDERED: fentaNYL 50 MCG/HR PATCH TRANSDERM SCH (09:00)
[2016-12-15 17:10] VITALS: BP 74/44
--- NOTE | 2016-12-16 08:39 | Oncology Progress Note ---
Assessment and Plan (1) Liver metastases Status: Acute Current Visit: Yes (2) Liver failure Status: Acute Current Visit: Yes (3) Dehydration Status: Acute Current Visit: Yes (4) Hypotension Status: Acute Current Visit: Yes (5) Pancytopenia Status: Acute Current Visit: Yes Oncology Subjective PN Interval history: Mr. Monk is essentially the same. He is still not eating or ambulating. His abdomen is soft. He has no specific complaints. We are basically providing comfort measures here in the hospital since his social situation does not allow any type of definitive discharge. Exam - Constitutional Vitals: Period Temp Pulse Resp BP Sys/Benson Pulse Ox Last 24 Hr 97.4 F 92 16-37 74/44 97 Results - Labs CBC & BMP: 12/12/16 04:44 12/12/16 04:44 Quality Measures - VTE Contraindication to Pharmacological VTE Prophylaxis: Thrombocytopenia - Stroke Symptom Onset Unknown: No
--- NOTE | 2016-12-17 09:58 | Oncology Progress Note ---
Assessment and Plan (1) Liver metastases Status: Acute Current Visit: Yes (2) Liver failure Status: Acute Current Visit: Yes (3) Dehydration Status: Acute Current Visit: Yes (4) Hypotension Status: Acute Current Visit: Yes (5) Pancytopenia Status: Acute Current Visit: Yes Oncology Subjective PN Interval history: Mr. Monk is now unresponsive. I do not see him surviving more than the next 24 -48 hours at best. His family is aware of this. He does not appear to be agitated or in any pain. We'll continue with comfort measures. Exam - Constitutional Vitals: Period Temp Pulse Resp BP Sys/Benson Pulse Ox Last 24 Hr 12-22 Results - Labs CBC & BMP: 12/12/16 04:44 12/12/16 04:44 Quality Measures - VTE Contraindication to Pharmacological VTE Prophylaxis: Thrombocytopenia - Stroke Symptom Onset Unknown: No
--- NOTE | 2016-12-28 11:12 | Physician Query Form ---
CLICK EDIT DOCUMENT TO SELECT QUERY ANSWER --> OK --> SIGN Thao Multani RN, CCDS Certified Clinical Perl Programmer W) [phone] (f) [phone] [email or web address] PROVIDERS: Make your selection(s) from the choices in EACH section by typing an "x" and enter comments in the comment section. Please use your independent medical judgment in providing your response. This request does not imply that any particular answer is desired or expected. CLINICAL INDICATORS: (Providers should not edit this section) The medical record indicates that the patient was admitted with pancreatic cancer, "Pancytopenia", "newly diagnosed metastatic pancreatic cancer who began chemotherapy last week". Based on the above, could you clarify the appropriate diagnosis, if significant , that supports the above abnormalities and additional evaluation, monitoring, and/or treatment rendered: ( ) Pancytopenia due to ( x) Pancytopenia due to --- Chemotherapy induced Pancytopenia ( ) Pancytopenia due to Liver metastases/ Pancreatic Cancer ( ) Other, please specify: ( ) Clinically unable to determine COMMENTS: Use of terms such as suspected, likely, or probable (associated with a specific diagnosis that is being evaluated, monitored, or treated as if it exists) are acceptable and can be restated in the discharge summary if not ruled out. MTDD
== END 2016-12-17 11:00 | disposition expired | DRG 808 ==
LOC: EDUNIT# → EDBD → N.ED 09:52 → N.EDINP 12:43 → N.ICU 13:24 → N.4E 12-09 14:14
PROVIDERS: ADMIT Specialist; ATTEND Specialist